=== PATIENT | female | born 1960 | race Caucasian/White ===

== ENCOUNTER 2017-08-30 12:16 | Day surgery (SDC) | payer BC ==
[~2017-08-30] VITALS: Ht 162.6 cm; Wt 81.7 kg
[~2017-08-30 12:16] MED LIST: Amitiza8 MCG; CRUTCH4 USE; DIPH50 PO; HYDACE5 PO; LEVFLO500 PO; OXYACE5T PO; PROM25 PO
== END 2017-08-30 15:42 | disposition home or self-care (01) ==
LOC: ORSCSDS 12:16
PROVIDERS: Internal Medicine Gastroenterology
PROC: 0DBM8ZX Excision of Descending Colon, Via Natural or Artificial Opening Endoscopic, Diagnostic (ICD-10-PCS; principal; 2017-08-30 13:45)
PROC: 0DBP8ZX Excision of Rectum, Via Natural or Artificial Opening Endoscopic, Diagnostic (ICD-10-PCS; principal; 2017-08-30 13:45)
DX: Z86.010 Personal history of colon polyps (principal); D12.4 Benign neoplasm of descending colon; K62.1 Rectal polyp; K64.8 Other hemorrhoids
CPT/HCPCS: 88305; J1980